=== PATIENT | male | born 1950 | race Caucasian/White ===

== ENCOUNTER 2024-06-01 23:30 | Outpatient (CLI) | payer MEDICARE, SELFPAY ==
--- OUTSIDE RECORDS SUMMARY | 2024-06-21 06:23 | XMS_ITS | Summary of Care ---
Author Organization [facility] Address [address] [place] [phone] Phone Care Team Providers Care Fryline Attendant Name Role Phone Deanna Rogers MD Primary Care Provider [phone] Reason for Visit * Reason Comments Medication Refill Encounter Details Date Type Department Care Team (Late st Contact Info) Description 04/06/2024 Refill [facility] [address] [place] [phone] Danuta Madrigal MD [address] [place] [address] [phone] Medication Refill Allergies No known active allergiesdocumented as of this encounter (statuses as of 04/07/2024) Medications Medication Sig Dispensed Refills Start Date End Date Status Lisinopril-hydroCHL OROthiazide 20-25 MG Oral Tablet Take 1 tablet by mouth Daily. 0 03/24/2014 Active Eligard 45 MG Subcutaneous Kit Take as directed 0 12/04/2019 Active MANUAL SELECTION NEEDED - Centrum Silver Oral Tablet TAKE 1 TABLET DAILY. 0 03/24/2014 Active MANUAL SELECTION NEEDED - Oxybutynin Chloride TABS Take by mouth Daily. 0 12/04/2019 Active MANUAL SELECTION NEEDED - Pravachol TABS TAKE 1 TABLET AT BEDTIME. 0 12/04/2019 Active MANUAL SELECTION NEEDED - Iron TABS Take by mouth. 0 04/28/2020 Active apalutamide (ERLEADA) 60 mg tablet Take 4 tablets by mouth Daily. Active HYDROcodone-acetami nophen (NORCO) 5-325 mg per tabletIndications:P ostoperative pain Take 1 tablet by mouth every 6 hours as needed for Pain. 30 tablet 06/16/2022 Active amantadine (SYMMETREL) 100 mg capsuleIndications: Parkinson's disease (HCC) TAKE 1 CAPSULE BY MOUTH TWICE A DAY 180 capsule 1 12/31/2023 Active carbidopa-levodopa (SINEMET) 25-250 mg per tabletIndications:P arkinson's disease without dyskinesia or fluctuating manifestations (HCC) TAKE 1 TABLET THREE TIMES A DAY. 270 tablet 3 01/03/2024 Active clonazePAM (KLONOPIN) 1 mg tabletIndications:R EM sleep behavior disorder Take 1 tablet by mouth nightly. 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): Interrogated without changes made Patient with the ability to adjust on his own Assessment & Plan (08/02/2022 1:02 PM PUSH BUTTON SWITCH ASSEMBLER): Slight increase done for tremor control REM sleep behavior disorder 03/29/2016 Assessment & Plan (08/02/2022 1:03 PM PUSH BUTTON SWITCH ASSEMBLER): Continue clonazepam Pain due to any device, implant or graft 016 Sweating increase 03/29/2016 Obesity (BMI 30-39.9) 08/31/2015 Parkinson's disease 03/24/2014 Assessment & Plan (01/03/2024 1:56 PM CDT): PD motor symptoms are mostly stable on his current regimen along with his DBS settings We will continue current medication regimen Encouraged continued participation in therapy/exercise as well as safety with walker while ambulating I will send refills for his medications today I spent >30 minutes in total patient care RTC 6 months Assessment & Plan (07/05/2023 9:34 AM PUSH BUTTON SWITCH ASSEMBLER): Patient is mostly stable on his current regimen along with his DBS settings, despite injuring his left side and spening >2 months in rehab Will continue current medication regimen Encouraged continued participation in therapy/exercise as well as safety with walker while ambulating I will send refills for his medications I spent >30 minutes in total patient care RTC 6 months Assessment & Plan (08/02/2022 1:02 PM PUSH BUTTON SWITCH ASSEMBLER): Patient is mostly stable on his current regimen along with his DBS settings Improved since battery replacement Encouraged continued participation in therapy/exercise I will send refills for all his medications, as he as changed insurance I spent >30 minutes in total patient care Assessment & Plan (05/30/2022 4:11 PM CDT): 1. Replacement bilateral anterior chest pulse generator, we have already received clearance from his tar chaser We discussed the process for replacement of a DBS pulse generator in detail today in the clinic. We also discussed potentially replacing the lead extension if required and found to be defective at the time of surgery. Alternatively the patient could forego surgery. Surgical risks can include infection, bleeding, pain, cosmetic deformity, need for future explantation or revision, damage to the system including the intracranial lead and lead extension. Damaged intracranial lead would require a separate revision surgery in the future. Following discussion questions were invited and answered to the patient's satisfaction. The patient would like to proceed. My office will work with the patient on scheduling the details of the operation. Assessment & Plan (02/21/2022 1:45 PM CDT): 1. Replacement of IPG 2. Cardiac clearance Dr. Rogers, [facility]. We discussed the process for replacement of a DBS pulse generator in detail today in the clinic. We also discussed potentially replacing the lead extension if required and found to be defective at the time of surgery. Alternatively the patient could forego surgery. Surgical risks can include infection, bleeding, pain, cosmetic deformity, need for future explantation or revision, damage to the system including the intracranial lead and lead extension. Damaged intracranial lead would require a separate revision surgery in the future. Following discussion questions were invited and answered to the patient's satisfaction. The patient would like to proceed. My office will work with the patient on scheduling the details of the operation. Assessment & Plan (11/18/2021 4:53 PM CDT): Patient is referred for neurology for replacement of IPG. Unclear whether this is a unilateral or bilateral replacement. 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 Motoring x-rays to see if this can provide some clarity on where the patient stated the wires are crossed. Unfortunately he has leg cellulitis with actively draining wounds and was just started on antibiotics by his primary care physician. His son accompanied him to clinic today and was unaware of this. I explained to him that we cannot proceed with surgery yet until this infection is cleared up. Once the infection is cleared we can proceed with replacing the pulse generator. We also discussed that if damage is found to the lead extensions at the time of surgery neck can be replaced as well. We discussed the process for replacement of a DBS pulse generator in detail today in the clinic. We also discussed potentially replacing the lead extension if required and found to be defective at the time of surgery. Alternatively the patient could forego surgery. Surgical risks can include infection, bleeding, pain, cosmetic deformity, need for future explantation or revision, damage to the system including the intracranial lead and lead extension. Damaged intracranial lead would require a separate revision surgery in the future. Following discussion questions were invited and answered to the patient's satisfaction. The patient would like to proceed. My office will work with the patient on scheduling the details of the operation. documented as of this encounter (statuses as of 04/07/2024) Social History Tobacco Use Types Packs/Day Years Used Date Smoking Tobacco: Former Cigarettes Q uit: 1972 Smokeless Tobacco: Never Alcohol Use Standard Drinks/Week Comments Never 0 (1 standard drink = 0.6 oz pur e alcohol) Vaping Answer Date Recorded Vaping Use Status Never user 11/17/2021 Alcohol Use History Answer Date Recorde d Alcohol use Never 11/05/2022 Alcohol/week (standard drinks) Not on File 0 11/05/2022 Abuse Screen Answer Date Recorded We ask all patients, do you feel safe in your living/school environment? Patient denies concerns 06/16/2022 Patient shows signs of physi jorge or sexual abuse, medical neglect, untreated STI s and or torture No 06/16/2022 Sex and Gender Information Value Date Recorded Sex Assigned at Not on file Gender Identity Not on file Sexual Orientation Not on file documented as of this encounter Plan of Treatment Upcoming Encounters Date Type Department Care Team (Late st Contact Info) Description 07/03/2024 1:00 PM PUSH BUTTON SWITCH ASSEMBLER Procedure visit [facility] LD [address] [place] [address] [phone] Danuta Madrigal MD [address] [place] [address] [phone] Health Maintenance Due Date Last Done Comments Hepatitis C Screening [address] Colonography 1967 ColoGuard 1967 Colonoscopy 1967 Colorectal Combination Topic 1967 FIT 1967 Sigmoidoscopy 1967 Vaccine: Dtap/Tdap/Td (1 - Tdap) 01/02/1968 Vaccine: Zoster (1 of 2) 1999 Vaccine: RSV Adult (1 - 1-do se 60+ series) 2009 AAA Screening 2014 Vaccine: Pneumococcal 65+ (1 of 1 - PCV) 2014 Adult Annual Wellness Visit 09/01/2021 Statin Therapy (optimal intensity) 09/01/2021 Med Mgmt: Cr 06/15/2023 06/15/2022 Med Mgmt: K 06/15/2023 06/15/2022 Med Mgmt: Na 06/15/2023 06/15/2022 Med Mgmt: eGFR 06/15/2023 06/15/2022 COVID-19 Vaccine (5 - 2023-2 4 season) 2024 03/23/2022, 08/08/2021, 10/09/2020, Additional history exists Vaccine: Influenza (#1) 2024 documented as of this encounter Medical Devices Implanted Type Area Design Technology Teacher Device Identifier Shelf Expiration Date Model / Serial / Lot Generator Neurostimulator Thk1.35cm 5.02x6.68cm 38.6cc 58.3gm Implantable Pulse Infinity - [id number] Implanted:Qty: 1 on 06/16/2022 by Yrn Maciel MD at [facility] Left: Chest [id number] 09/19/2023 [id number] / [id number] / Description:EXPLANTED #SNAWX 792.1 Generator Neurostimulator Thk1.35cm 5.02x6.68cm 38.6cc 58.3gm Implantable Pulse Infinity - [id number] Implanted:Qty: 1 on 06/16/2022 by Yrn Maciel MD at [facility] Right: Chest [id number] 12/27/2024 [id number] / [id number] / Description:EXPLANTED #SNAXE 797.1 documented as of this encounter Visit Diagnoses Diagnosis Parkinson's disease- Primary Paralysis agitans Parkinson's disease- Primary Paralysis agitans Parkinson's disease- Primary Paralysis agitans Parkinson's disease Paralysis agitans Encounter for interrogation of neurostimulator Fitting and adjustment of neuropacemaker (brain) (peripheral nerve) (spinal cord) REM sleep behavior disorder Parkinson's disease without dyskinesia or fluctuating manifestations (HCC) Encounter for interrogation of neurostimulator Fitting and adjustment of neuropacemaker (brain) (peripheral nerve) (spinal cord) Parkinson's disease without dyskinesia or fluctuating manifestations (HCC)- Primary Parkinson's disease with dyskinesia and fluctuating manifestations (HCC) Encounter for interrogation of neurostimulator Fitting and adjustment of neuropacemaker (brain) (peripheral nerve) (spinal cord) REM sleep behavior disorder Parkinson's disease with dyskinesia and fluctuating manifestations (HCC) documented in this encounter Additional Health Concerns Assessment Noted Time A fall risk assessment has been complete d for the patient 01/03/2024 1:25 PM PDT documented as of this encounter Insurance Payer Benefit Plan / Group Subscriber ID Effective Dates Phone Address Type [place] [id number] 2023-Presen t [address] [place] [phone] [place] [facility] [place] [facility] [id number] 2022-Presen t [address] [place] [address] Medicaid documented as of this encounter Advance Directives * Full Code by default - TBD (Latest Code Status on File) Date Activated Date Inactivated Comments 06/16/2022 10:56 AM 06/16/2022 3:11 PM Care Teams Fryline Attendant Relationship Specialty Start Date End Date Deanna Rogers MD [address] [place] [phone] PCP - General Internal Medicine - Cardiovascular Disease 11/17/21 documented as of this encounter
--- OUTSIDE RECORDS SUMMARY | 2024-06-21 06:24 | XMS_ITS | Data Portability ---
Author Organization [facility] [employer], [facility] Address [address] [facility] R Haritha [place] [address] Care Team Providers Care Search Strategist Name Role Phone JEN AMADOR Referring Provider [phone] Assessment Encounter Date Assessment Date Assessment LastModified by Organization Details LastModified Time 01/03/2022 01/03/2022 Gordon Hunter i s well known to me. As detailed in my previous notes, he has recently undergone extensive surgery. He presents today to discuss colorectal cancer screening. He is not interested in a colonoscopy at this time. Because of his advanced age, frailty, recent disease, and need for walker, he would like to avoid a colonoscopy if possible. He would like to pursue Cologuard testing instead. I think this is reasonable. I will proceed with a Cologuard test. He is agreeable to this. He understands that if the Cologuard test is positive, he will require a colonoscopy. He also understands that the Cologuard test has a false negative rate, and that polyps and cancers can potentially be missed with this test. I further explained that if he decides to pursue Cologuard testing only, screening will need to be performed with Cologuard tests every 3 years. He understands. He will follow-up again with me in 6 months, sooner if needed. I will contact him if Cologuard results are concerning. I spent a total of 25 minutes on this encounter. Not available 01/04/2022 21:48:49 03/09/2022 03/09/2022 I, Jaspal Monterroso, Margi Radha, acting as a scribe for Deanna Rogers MD to document his/her verbalization of the above electronic medical record in its entirety. Electronically Signed: Margi Lopez, Mar 09, 2022, Time: 3 : 36 pm I, Deanna Rogers MD, hereby attest for DOS, I personally performed and dictated the services documented here in its entirety and agree the documentation accurately represents the services and decisions I made. I also reviewed the documented ROS, PMH, SURGH, FMH, SOCH AND MEDICATIONS, and, made changes/additions as needed. Electronically signed: Deanna Rogers MD [facility] Not available 03/09/2022 18:36:09 03/14/2022 03/14/2022 I, OBI Butler, acting as a scribe for Deanna oRgers MD to document his/her verbalization of the above electronic medical record in its entirety. Electronically Signed: OBI Butler, Mar 14, 2022, Time: 09 : 56 AM Deanna Prajapati MD, hereby attest for DOS, I personally performed and dictated the services documented here in its entirety and agree the documentation accurately represents the services and decisions I made. I also reviewed the documented ROS, PMH, SURGH, FMH, SOCH AND MEDICATIONS, and, made changes/additions as needed. Electronically signed: [facility] Not available 03/15/2022 16:19:21 04/11/2022 04/11/2022 I, OBI Bulter, acting as a scribe for Deanna Rogers MD to document his/her verbalization of the above electronic medical record in its entirety. Electronically Signed: OBI Butler, Apr 11, 2022, Time: 03 : 28 PM Deanna Prajapati MD, hereby attest for DOS, I personally performed and dictated the services documented here in its entirety and agree the documentation accurately represents the services and decisions I made. I also reviewed the documented ROS, PMH, SURGH, FMH, SOCH AND MEDICATIONS, and, made changes/additions as needed. Electronically signed: MD parrish Brice Not available 04/13/2022 22:11:53 09/04/2022 09/04/2022 Gordon Hunter is well known to me. As detailed in my previous notes, he has undergone extensive surgery. He presents today once more to discuss colorectal cancer screening. He is not interested in a colonoscopy at this time. Because of his advanced age, frailty, recent disease, and need for walker, he would like to avoid a colonoscopy if possible. He would like to pursue Cologuard testing instead. I ordered this his last visit, but he has not done the test. We will order a repeat Cologuard test. He he demonstrated motivation to perform this. He understands that if this is positive, he will require a diagnostic colonoscopy. He is agreeable. He also understands that the Cologuard test has a false negative rate, and that polyps and cancers can potentially be missed with this test. I will contact him as soon as I have Cologuard test results to discuss further plans. If Cologuard test is negative, he will be due for a repeat in 3 years, and every 3 years thereafter. I spent a total of 20 minutes on this encounter. Not available 09/07/2022 01:08:06 Plan of Treatment Reminders Order Date Submit Date Provider Last Modified By Organization Details Last Modified Time Details Appointments None recorded. Lab noninvasive colorectal cancer DNA + occult blood screening, QL, stool [email or web address] [facility] (Lab), [address], [place], [address], 3 15:04:31 [facility] lipoprofile , serum [facility] [address] [place] [address], [id number], 2 12:02:36 CMP, serum or plasma 2021 [facility], [address] [place] [address], [id number], 12:33:54 CBC 2021 022 [facility], [address] [place] [address], [id number], 2 11:15:52 TSH, serum or plasma 2021 [facility], [address] [place] [address], [id number], 2 12:33:56 vitamin B12, serum 2021 [facility], [address] [place] [address], [id number], 2 12:33:53 HbA1c (hemoglobin A1c), blood 2021 [facility], [address] [place] [address], [id number], 22:00:46 vitamin D, 25-hydroxy, total, serum 2021 [facility], [address] [place] [address], [id number], 10:19:18 noninvasive colorectal cancer DNA + occult blood screening, QL, stool 2022 023 [facility] (Lab), [address], [place], [address], 3 00:00:26 Referral None recorded. Procedures None recorded. Surgeries None recorded. Imaging polysomnogr am 2021 022 [email or web address] [facility], [address], [place], [address], 13:25:44 cardiac telemetry 2021 022 JOE Not available 22:54:24 Medication Orders Vitamin D3 125 mcg (5,000 unit) tablet 2021 [id number], [address] [place] [address], [place], [phone], 15:20:28 ferrous sulfate 324 mg (65 mg iron) tablet,wade yed release 2021 022 [email or web address] [id number], [address], [place], [phone], 15:14:08 Patient TargetsNo targets recorded. Patient Instructions Encounter Date Encounter Id Patient Instructions Last Modified By Organization Details Last Modified Time 03/09/2022 [id number] When You Want to Lose Weight: Care Instructions [email or web address] Not available 03/13/2022 18:05:14 learning about healthy weight fadajar Not available 03/13/2022 18:05:14 body mass index: care instructions fadajar Not available 03/13/2022 18:05:14 eating healthy foods: care instructions fadajar Not available 03/13/2022 18:05:14 high cholesterol : care instructions fadajar Not available 03/13/2022 18:05:14 learning about high blood sugar fadajar Not available 03/13/2022 18:05:14 When You Want to Lose Weight: Care Instructions fadajar Not available 03/13/2022 18:05:14 sleep apnea: car e instructions fadajar Not available 03/13/2022 18:05:14 parkinson's disease: care instructions fadajar Not available 03/13/2022 18:05:14 atrial fibrillation: care instructions fadajar Not available 03/13/2022 18:05:14 03/14/2022 [id number] When You Want to Lose Weight: Care Instructions fadajar Not available 03/15/2022 16:31:40 learning about healthy weight fadajar Not available 03/15/2022 16:31:40 body mass index: care instructions fadajar Not available 03/15/2022 16:31:40 eating healthy foods: care instructions fadajar Not available 03/15/2022 16:31:40 sleep apnea: car e instructions fadajar Not available 03/15/2022 16:31:40 high cholesterol : care instructions fadajar Not available 03/15/2022 16:31:40 04/11/2022 [id number] When You Want to Lose Weight: Care Instructions fadajar Not available 04/13/2022 15:20:28 learning about healthy weight fadajar Not available 04/13/2022 15:20:28 body mass index: care instructions fadajar Not available 04/13/2022 15:20:28 eating healthy foods: care instructions fadajar Not available 04/13/2022 15:20:28 sleep apnea: car e instructions fadajar Not available 04/13/2022 15:20:28 high cholesterol : care instructions fadajar Not available 04/13/2022 15:20:28 iron deficiency anemia: care instructions fadajar Not available 04/13/2022 15:20:28 Reason for Referral None Reported. Results Created Date Observation Date Name Description Value Unit Range Abnormal Flag Note LastModifiedBy Organization Detail LastModifiedTime 03/28/20 22 03/28/2022 CBC W/ AUTO DIFF baso # 0.04 K/mm3 0-0.22 normal Not Available [facility] (Lab) [address] [place], [place] [address], [address], 03/28/2022 11:15:52 03/28/20 22 03/28/2022 CBC W/ AUTO DIFF baso % 0.6 % 0-2 normal Not Available [facility] (Lab) [address] [place] [address] [place], [address], 03/28/2022 11:15:52 03/28/20 22 03/28/2022 CBC W/ AUTO DIFF eos # 0.35 K/mm3 0-0.55 normal Not Available [facility] (Lab) [address] [place] [address] [place], [address], 03/28/2022 11:15:52 03/28/20 22 03/28/2022 CBC W/ AUTO DIFF eos % 5.3 % 0-5 high Not Available [facility] (Lab) [address] [place] [address] [place], [address], 03/28/2022 11:15:52 03/28/20 22 03/28/2022 CBC W/ AUTO DIFF hematocrit 38.8 % 41-[address] [facility] (Lab) [address] [place] [address] [place], [address], 03/28/2022 11:15:52 03/28/20 22 03/28/2022 CBC W/ AUTO DIFF hemoglobin 12.1 gm/dL 14-[address] [facility] (Lab) [address] [place] [address] [place], [address], 03/28/2022 11:15:52 03/28/20 22 03/28/2022 CBC W/ AUTO DIFF immature gran# 0.16 K/mm3 0.02-0 .[address] [facility] (Lab) [address] [place] [address] [place], [address], 03/28/2022 11:15:52 03/28/20 22 03/28/2022 CBC W/ AUTO DIFF immature gran% 2.4 % 0.2-0. [address] [facility] (Lab) [address] [place] [address] [place], [address], 03/28/2022 11:15:52 03/28/20 22 03/28/2022 CBC W/ AUTO DIFF lymph # 1.51 K/mm3 0.72-5 .[address] [facility] (Lab) [address] [place] [address] [place], [address], 03/28/2022 11:15:52 03/28/20 22 03/28/2022 CBC W/ AUTO DIFF lymph % 22.8 % 16-47 normal Not Available [facility] (Lab) [address] [place] [address] [place], [address], 03/28/2022 11:15:52 03/28/20 22 03/28/2022 CBC W/ AUTO DIFF mean corpuscular hemoglobin 29.5 pg 26-34 normal Not Available [facility] (Lab) [address] [facility] [place], [address], 03/28/2022 11:15:52 03/28/20 22 03/28/2022 CBC W/ AUTO DIFF mean corpuscular HGB conc 31.2 g/dL 33-36 low Not Available [facility] (Lab) [address] [place] [address] [place], [address], 03/28/2022 11:15:52 03/28/20 22 03/28/2022 CBC W/ AUTO DIFF mean cell volume 94.6 fL 80-100 normal Not Available [facility] (Lab) [address] [place] [address] [place], [address], 03/28/2022 11:15:52 03/28/20 22 03/28/2022 CBC W/ AUTO DIFF mono # 0.64 K/mm3 0.135- 1.[address] [facility] (Lab) [address] [place] [address] [place], [address], 03/28/2022 11:15:52 03/28/20 22 03/28/2022 CBC W/ AUTO DIFF mono % 9.7 % 3-13 normal Not Available [facility] (Lab) [address] [place] [address] [place], [address], 03/28/2022 11:15:52 03/28/20 22 03/28/2022 CBC W/ AUTO DIFF mean platelet volume 9.4 fL 8.6-12 .[address] [facility] (Lab) [address] [place] [address] [place], [address], 03/28/2022 11:15:52 03/28/20 22 03/28/2022 CBC W/ AUTO DIFF neutrophil# 3.92 K/mm3 1.8-8. [address] [facility] (Lab) [address] [place] [address] [place], [address], 03/28/2022 11:15:52 03/28/20 22 03/28/2022 CBC W/ AUTO DIFF neutrophil% 59.2 % 40-76 normal Not Available [facility] (Lab) [address] [place], [address], 03/28/2022 11:15:52 03/28/20 22 03/28/2022 CBC W/ AUTO DIFF nucleated red blood cell 0.0 % 0-0 normal Not Available [facility] (Lab) [address] [place], [address], 03/28/2022 11:15:52 03/28/20 22 03/28/2022 CBC W/ AUTO DIFF platelet count 299 K/mm3 130-40 [address] [facility] (Lab) [address] [place], [address], 03/28/2022 11:15:52 03/28/20 22 03/28/2022 CBC W/ AUTO DIFF red blood count 4.1 M/mm3 4.5-5. [address] [facility] (Lab) [address] [place], [address], 03/28/2022 11:15:52 03/28/20 22 03/28/2022 CBC W/ AUTO DIFF red cell distribution width 14.0 % 11.5-1 5.[address] [facility] (Lab) [address] [place], [address], 03/28/2022 11:15:52 03/28/20 22 03/28/2022 CBC W/ AUTO DIFF white blood count 6.6 K/mm3 4.5-11 .[address] [facility] (Lab) [address] [place], [address], 03/28/2022 11:15:52 03/28/20 22 03/28/2022 VITAM IN B12 vitamin B12 264 pg/mL 180-91 [address] [facility] (Lab) [address] [place], [address], 03/28/2022 12:33:53 03/28/20 22 03/28/2022 COMP. METAB OLIC albumin 3.7 gm/dL 3.5-5. [address] [facility] (Lab) [address] [place], [address], 03/28/2022 12:33:54 03/28/20 22 03/28/2022 COMP. METAB OLIC alkaline phosphatase 82 U/L 32-140 normal Not Available [facility] (Lab) [address] [place], [address], 03/28/2022 12:33:54 03/28/20 22 03/28/2022 COMP. METAB OLIC blood urea nitrogen 26 mg/dL 8-21 high Not Available [facility] (Lab) [address] [place], [address], 03/28/2022 12:33:54 03/28/20 22 03/28/2022 COMP. METAB OLIC calcium 9.7 mg/dL 8.4-10 .[address] [facility] (Lab) [address] [place], [address], 03/28/2022 12:33:54 03/28/20 22 03/28/2022 COMP. METAB OLIC chloride 105 mEq/L 98-112 normal Not Available [facility] (Lab) [address] [place], [address], 03/28/2022 12:33:54 03/28/20 22 03/28/2022 COMP. METAB OLIC carbon dioxide 26 mEq/L 24-31 normal Not Available [facility] (Lab) [address] [place], [address], 03/28/2022 12:33:54 03/28/20 22 03/28/2022 COMP. METAB OLIC creatinine 1.0 mg/dL 0.6-1. [address] [facility] (Lab) [address] [place], [address], 03/28/2022 12:33:54 03/28/20 22 03/28/2022 COMP. METAB OLIC anion gap 11.5 5-[address] [facility] (Lab) [address] [place], [address], 03/28/2022 12:33:54 03/28/20 22 03/28/2022 COMP. METAB OLIC glucose,rand om 102 mg/dL 65-105 normal Not Available [facility] (Lab) [address] [place], [address], 03/28/2022 12:33:54 03/28/20 22 03/28/2022 COMP. METAB OLIC potassium 4.5 mEq/L 3.5-5. [address] [facility] (Lab) [address] [facility] [place], [address], 03/28/2022 12:33:54 03/28/20 22 03/28/2022 COMP. METAB OLIC sodium 138 mEq/L 135-14 [address] [facility] (Lab) [address] [facility] [place], [address], 03/28/2022 12:33:54 03/28/20 22 03/28/2022 COMP. METAB OLIC SGOT/AST 11 IU/L 10-42 normal Not Available [facility] (Lab) [address] [place] [address] [place], [address], 03/28/2022 12:33:54 03/28/20 22 03/28/2022 COMP. METAB OLIC SGPT/ALT 6 IU/L 10-40 low Not Available [facility] (Lab) [address] [place] [address] [place], [address], 03/28/2022 12:33:54 03/28/20 22 03/28/2022 COMP. METAB OLIC bilirubin,to catrachito 0.3 mg/dL 0.2-1. [address] [facility] (Lab) [address] [place], [address], 03/28/2022 12:33:54 03/28/20 22 03/28/2022 COMP. METAB OLIC total protein 6.9 gm/dL 6-8 normal Not Available [facility] (Lab) [address] [place], [address], 03/28/2022 12:33:54 03/28/20 22 03/28/2022 COMP. METAB OLIC eGFR 74 60 Repor ting units are ml/mi n/1.7 3 2 eGFR from the CKD-E PI equat ion. For Afro Ameri can multi ply resul t by 1.16. Estim ation s may not be accur ate in patie nts with extre mes in body mass, diet, or other condi tions affec ting creat inine excre tion. For more infor anai sky visit [email or web address] mathews .org/ lesly aguilar/K DOQI/ gfr Not Available [facility] (Lab) [address] [place], [address], 03/28/2022 12:33:54 03/28/20 22 03/28/2022 LIPID PANEL chol/HDL 4.9 ratio 2.27-3 .[address] [facility] (Lab) [address] [place], [address], 03/28/2022 12:33:55 03/28/20 22 03/28/2022 LIPID PANEL cholesterol 153 mg/dL 120-20 [address] Not [address] [facility] (Lab) [address] [place], [address], 03/28/2022 12:33:55 03/28/20 22 03/28/2022 LIPID PANEL HDL cholesterol 31 mg/dL 31-75 normal Not Available [facility] (Lab) [address] [place] [address] [place], [address], 03/28/2022 12:33:55 03/28/20 22 03/28/2022 LIPID PANEL LDL cholesterol 80 mg/dL Optim al: <100 Borde rline High: 130-[address] [facility] (Lab) [address] [place] [address] [place], [address], 03/28/2022 12:33:55 03/28/20 22 03/28/2022 LIPID PANEL triglyceride s 211 mg/dL 35-160 high Not Available [facility] (Lab) [address] [place] [address] [place], [address], 03/28/2022 12:33:55 03/28/20 22 03/28/2022 THYRO ID STIMU LATIN G HORMO NE thyroid stimulating hormone 1.83 uIU/m L 0.49-4 .[address] [facility] (Lab) [address] [place] [address] [place], [address], 03/28/2022 12:33:56 03/28/20 22 03/28/2022 HGBA1 C A1C 0.53 Not Available [facility] (Lab) [address] [place] [address] [place], [address], 03/28/2022 22:00:46 03/28/20 22 03/28/2022 HGBA1 C Hb 12.00 Not Available [facility] (Lab) [address] [place] [address] [place], [address], 03/28/2022 22:00:46 03/28/20 22 03/28/2022 HGBA1 C % HGBA1C 6.2 % 4.2-6. [address] [facility] (Lab) [address] [place] [address] [place], [address], 03/28/2022 22:00:46 03/28/20 22 03/28/2022 HGBA1 C est avg gluc 131 mg/dL 76-120 high Not Available [facility] (Lab) [address], [place], [address], 03/28/2022 22:00:46 03/28/20 22 03/29/2022 VITAM IN D, 25-HY DROXY vitamin D, 25-hydroxy 29.1 NG/mL 30.0-1 00.0 abnormal Vitam in D defic iency has been defin ed by the Insti tute of Medic ine and an Endoc rine Socie ty pract ice guide line as a level of serum 25-OH vitam in D less than 20 ng/mL (1,2) . The Endoc rine Socie ty went on to [facility] er defin e vitam in D insuf ficie ncy as a level betwe en 21 and 29 ng/mL (2). 1. IOM (Inst itute of Medic ine). 2010. Dieta ry refer ence intak es for calci um and D. Darwin winn [place]: [facility] Press . 2. Sánchez amado MF, Bryon reyes [place], Alicia off-F errtoo i GE, et al. Evalu ation , treat ment, and preve ntion of vitam in D defic iency : an Endoc rine Socie ty clini jorge pract ice guide line. JCEM. 2010; 96(7) :1911 -30. Perfo rmed at: [facility] [place] [address], [place] [address] Lab Direc tor: Lucio gaytan MD, Phone : [phone] [facility] (Lab) [address] [place], [place], [address], 03/29/2022 10:19:18 03/17/20 22 03/14/2022 elect betzaida ordonez am No observ ation record ed. [facility] [place] [address] [facility], [place], [address], 03/17/2022 20:27:37 03/19/20 22 03/17/2022 cardi ac telem etry No observ ation record ed. [email or web address] [facility] [address], [place], [address], 04/08/2022 18:07:36 03/20/20 22 03/18/2022 cardi ac telem etry No observ ation record ed. [email or web address] [facility] [address], [place], [address], 04/08/2022 18:07:37 03/20/20 22 03/19/2022 cardi ac telem etry No observ ation record ed. [email or web address] [facility] [address], [place], [address], 04/08/2022 18:04:40 03/21/20 22 03/20/2022 cardi ac telem etry No observ ation record ed. [email or web address] [facility] [address], [place], [address], 04/08/2022 18:04:47 03/22/20 22 03/21/2022 cardi ac telem etry No observ ation record ed. [email or web address] [facility] [address], [place], [address], 04/08/2022 18:04:56 03/23/20 22 03/22/2022 cardi ac telem etry No observ ation record ed. [email or web address] [facility] [address], [place], [address], 04/08/2022 18:05:02 03/25/20 22 03/23/2022 cardi ac telem etry No observ ation record ed. [email or web address] [facility] [address], [place], [address], 04/08/2022 18:05:19 03/25/20 22 03/24/2022 cardi ac telem etry No observ ation record ed. [facility] [address], [place], [address], 04/08/2022 18:05:31 03/26/20 22 03/25/2022 cardi ac telem etry No observ ation record ed. [email or web address] [facility] [address], [place], [address], 04/08/2022 18:05:43 03/27/20 22 03/26/2022 cardi ac telem etry No observ ation record ed. [email or web address] [facility] [address], [place], [address], 04/08/2022 18:05:51 03/28/20 22 03/27/2022 cardi ac telem etry No observ ation record ed. [facility] [address], [place], [address], 04/08/2022 18:07:37 03/30/20 22 03/28/2022 cardi ac telem etry No observ ation record ed. [email or web address] [facility] [address], [place], [address], 04/08/2022 18:07:38 03/31/20 22 03/29/2022 cardi ac telem etry No observ ation record ed. [email or web address] [facility] [address], [place], [address], 04/08/2022 18:07:38 04/02/20 22 03/31/2022 cardi ac telem etry No observ ation record ed. [email or web address] [facility] [address], [place], [address], 04/08/2022 18:36:06 04/02/20 22 04/01/2022 cardi ac telem etry No observ ation record ed. [email or web address] [facility] [address], [place], [address], 04/08/2022 18:40:55 04/03/20 22 04/02/2022 cardi ac telem etry No observ ation record ed. [email or web address] [facility] [address], [place], [address], 05/02/2022 19:43:06 04/03/20 22 03/30/2022 cardi ac telem etry No observ ation record ed. [facility] [address], [place], [address], 04/08/2022 18:01:08 04/07/20 22 04/03/2022 cardi ac telem etry No observ ation record ed. [email or web address] [facility] [address], [place], [address], 05/02/2022 19:43:07 04/07/20 22 04/05/2022 cardi ac telem etry No observ ation record ed. [email or web address] [facility] [address], [place], [address], 05/02/2022 19:43:08 04/09/20 22 04/08/2022 cardi ac telem etry No observ ation record ed. [email or web address] [facility] [address], [place], [address], 05/02/2022 19:43:08 04/09/20 22 04/06/2022 cardi ac telem etry No observ ation record ed. [email or web address] [facility] [address], [place], [address], 05/02/2022 19:43:09 04/10/20 22 04/09/2022 cardi ac telem etry No observ ation record ed. [email or web address] [facility] [address], [place], [address], 04/11/2022 13:05:02 04/11/20 22 04/07/2022 cardi ac telem etry No observ ation record ed. [email or web address] [facility] [address], [place], [address], 05/02/2022 19:43:10 04/11/20 22 04/10/2022 cardi ac telem etry No observ ation record ed. [facility] [address], [place], [address], 05/02/2022 19:43:11 04/11/20 22 04/11/2022 chapis hicksgr am No observ ation record ed. [facility] [address] [facility], [place], [address], 04/11/2022 20:38:43 04/19/20 22 cardi ac telem etry No observ ation record ed. [place] [address] [employer] [address], [place], [address], 05/02/2022 19:43:12 04/19/20 22 04/15/2022 cardi ac telem etry No observ ation record ed. [email or web address] [facility] [address], [place], [address], 05/02/2022 19:43:13 Result Notes None recorded. Problems Name Problem SNOMED Code Status Onset Date Resolution Date Notes Provider Name and Address Organization Details Recorded Time Impotence of organic origin Active Subha Templeton [employer] null, [facility] 6 17:21:17 Arthritis 4155697 Active Subha Templeton [employer]SO[employer] MONITOR null, [facility] 6 17:21:17 Parkinson' s disease 21030722 Active Deanna Rogers MD [address], [place], [address] [place] [address] 6 18:56:59 Hydrocele Active Sbuha Templeton [employer]SO[employer] MONITOR null, [facility] 6 17:21:17 Swelling of scrotum 101475591 Active Subha Templeton [employer] TELEVIS[employer]SOLE MONITOR null, [facility] 6 17:21:17 Obesity 992620047 Active Home sleep study performed 08/18/2019 was negative for SISSY. Miller Cerriteno , ABR-OE null, [facility] 0 11:25:32 Electrocar diogram abnormal 247731722 Active Adenosine nuclear stress test performed 09/18/2019 showed normal myocardial perfusion imaging, negative for ischemia nor arrythmia. Miller Cerriteno , ABR-OE null, [facility] 0 12:53:22 Carotid bruit 402298712 Active 2019 Carotid ultrasound performed 08/13/2019 showed no evidence of measurable stenosis. Miller Cerriteno , ABR-OE null, [facility] 0 11:20:13 Left ventricula r hypertroph y 64273554 Active 2019 Echocardio gram performed 08/13/2019 showed EF at 60-65%, severe LVH, mild tricuspid regurgitat ion, left atrium mildly dilated. Mild aortic root dilatation . Millerjoss Hansen , ABR-OE null, [facility] [employer] 0 11:20:48 Abdominal aortic aneurysm 729516465 Active 2020 Abdominal aortic ultrasound performed 03/10/2020 showed abdominal aortic aneurysm measuring 4.[address] abdomen with runoff performed 03/15/2020 reflected cholelithi asis without acute cholecysti tis. 3.5 cm aneurysmal ectasia of the infrarenal abdominal aorta. 2.5 cm simple cyst present in the superior pole of the right kidney. Colonic diverticul osis present without acute diverticul itis. 3 cm lesion noted in segment 7 of the liver with enhancing characteri stics of benign hepatic cavernous angioma impression . CTA abdominal aorta with runoff performed 09/10/2020 . Study showed no AAA. Miller Tyrone , ABR-OE null, [facility] 1 17:40:26 Metastatic malignant neoplasm 434610912 Active 2020 CTA abdominal aorta with runoff performed 09/10/2020 . Study showed no AAA. Left popliteal artery demonstrat es three-vess el runoff with multifocal segmental stenosis i nthe proximal and distal aspects suggestive of small vessel disease. Left iliac bone demonstrat es a sclerotic lesion measuring 5.2 cm x 3.7 cm. Metastatic disease from an unknown primary cannot be excluded. Miller Tyrone , ABR-OE null, [facility] [employer] 1 17:42:57 Problem Notes None recorded. Procedures Surgical History Date Name Laterality Status Provider Name and Address Organization Details Recorded Time 2 WOUND CARE completed Aashish Blackmon MD [address], [place], [address], [place] [facility] [employer] 09/29/2021 17:06:49 0 ELIGARD INJECTION completed Danielle Valentine CMA [facility] [employer] 10/20/2019 11:59:45 9 ELIGARD INJECTION completed ADONIS Nieves [facility] [employer] 04/09/2019 13:24:52 7 GENERIC TEMPLATE completed Chey FloresireADONIS wallace [facility] [place] 08/01/2016 13:25:12 6 GENERIC TEMPLATE completed ADONIS Nieves [facility] [place] 07/28/2016 11:49:43 6 INGUINAL HERNIA REPAIR (SURG) completed Deanna Rogers MD [address], [place], [address], [facility] 09/02/2016 18:54:25 Joint Surgery completed Kortney Wright, [facility] 06/12/2016 12:15:57 Kidney Surgery completed Becky Guillen [facility] 06/10/2013 14:51:03 Knee Arthroscopy completed Becky Guillen [facility] 06/10/2013 14:51:03 Imaging Results Imaging Date Name Status LastModified by Organization Details LastModified Time 03/14/2022 electrocardiogram completed [facility] [address] [facility], [place], [address], 03/17/2022 20:27:37 03/17/2022 cardiac telemetry completed [email or web address] [facility] [address], [place], [place], [address], 04/08/2022 18:07:36 03/18/2022 cardiac telemetry completed [email or web address] [facility] [address], [place], [address], 04/08/2022 18:07:37 03/19/2022 cardiac telemetry completed [email or web address] [facility] [address], [place], [place], [address], 04/08/2022 18:04:40 03/20/2022 cardiac telemetry completed [email or web address] [facility] [address], [place], [address], 04/08/2022 18:04:47 03/21/2022 cardiac telemetry completed [email or web address] [facility] [address], [place], [address], 04/08/2022 18:04:56 03/22/2022 cardiac telemetry completed [email or web address] [facility] [address], [place], [address], 04/08/2022 18:05:02 03/23/2022 cardiac telemetry completed [email or web address] [facility] [address], [place], [place], [address], 04/08/2022 18:05:19 03/24/2022 cardiac telemetry completed [email or web address] [facility] [address], [place], [address], 04/08/2022 18:05:31 03/25/2022 cardiac telemetry completed [email or web address] [facility] [address], [place], [place], [address], 04/08/2022 18:05:43 03/26/2022 cardiac telemetry completed [email or web address] [facility] [address], [place], [place], [address], 04/08/2022 18:05:51 03/27/2022 cardiac telemetry completed [email or web address] [facility] [address], [place], [address], 04/08/2022 18:07:37 03/28/2022 cardiac telemetry completed [email or web address] [facility] [address], [place], [address], 04/08/2022 18:07:38 03/29/2022 cardiac telemetry completed [email or web address] [facility] [address], [place], [address], 04/08/2022 18:07:38 03/31/2022 cardiac telemetry completed [email or web address] [facility] [address], [place], [address], 04/08/2022 18:36:06 04/01/2022 cardiac telemetry completed [facility] [address], [place], [address], 04/08/2022 18:40:55 04/02/2022 cardiac telemetry completed [email or web address] [facility] [address], [place], [address], 05/02/2022 19:43:06 03/30/2022 cardiac telemetry completed [email or web address] [facility] [address], [place], [address], 04/08/2022 18:01:08 04/03/2022 cardiac telemetry completed [email or web address] [facility] [address], [place], [address], 05/02/2022 19:43:07 04/05/2022 cardiac telemetry completed [email or web address] [facility] [address], [place], [address], 05/02/2022 19:43:08 04/08/2022 cardiac telemetry completed [email or web address] [facility] [address], [place], [address], 05/02/2022 19:43:08 04/06/2022 cardiac telemetry completed [facility] [address], [place], [address], 05/02/2022 19:43:09 04/09/2022 [email or web address] [address], [place], [address], 04/11/2022 13:05:02 04/07/2022 cardiac telemetry completed [email or web address] [facility] [address], [place], [address], 05/02/2022 19:43:10 04/10/2022 cardiac telemetry completed [facility] [address], [place], [address], 05/02/2022 19:43:11 04/11/2022 electrocardiogram completed [facility] [address], [address], 04/11/2022 20:38:43 04/19/2022 cardiac telemetry completed [place] [address] [employer] [address], [place], [address], 05/02/2022 19:43:12 04/15/2022 cardiac telemetry completed [email or web address] [facility] [address], [place], [address], 05/02/2022 19:43:13 Procedure Notes None recorded. Medical Equipment None Reported. Allergies No known drug allergies Medications Name Sig Start Date Stop Date Status Note LastModified by Organization Details LastModified Time amantadine HCl 100 mg tablet 12/04 completed Not Available Not Available Not Available carisoprodo l 350 mg tablet 08/12 completed Not Available Not Available Not Available amoxicillin 500 mg capsule 09/13 completed Not Available Not Available Not Available pramipexole 1 mg tablet TAKE 1 TABLET BY MOUTH THREE TIMES A DAY active Not Available Not Available No t Available furosemide 40 mg tablet TAKE 1 TABLET BY MOUTH EVERY MORNING 12/04 completed Not Available Not Available Not Available potassium chloride ER 10 mEq capsule,ext ended release TK 1 C PO QD 09/05 completed Not Available Not Available Not Available oxybutynin chloride ER 15 mg tablet,exte nded release 24 hr TAKE 1 TABLET BY MOUTH EVERY DAY active Not Available Not Available No t Available ropinirole 1 mg tablet 09/13 completed Not Available Not Available Not Available albuterol sulfate 2.5 mg/3 mL (0.083 %) solution for nebulizatio n USE 1 VIAL ONCE 03/14 completed Not Available Not Available Not Available oxybutynin chloride ER 10 mg tablet,exte nded release 24 hr TAKE 1 TABLET BY MOUTH EVERY DAY 09/29 completed Not Available Not Available Not Available azithromyci n 250 mg tablet 09/16 completed Not Available Not Available Not Available pravastatin 40 mg tablet TAKE 1 TABLET BY MOUTH AT NIGHT active Not Available Not Available No t Available carbidopa 25 mg-levodopa 250 mg tablet TAKE 1 TABLET BY MOUTH THREE TIMES A DAY active Not Available Not Available No t Available cephalexin 250 mg capsule TAKE 1 CAPSULE BY MOUTH FOUR TIMES A DAY active Not Available Not Available No t Available hydrocodone 5 mg-acetamin ophen 325 mg tablet TAKE 1 TABLET BY MOUTH EVERY 4 (FOUR) HOURS IF NEEDED FOR MODERATE PAIN (4-6) FOR UP TO 4 DAYS. 12/04 completed Not Available Not Available Not Available promethazin e 25 mg rectal suppository Insert by rectal route for 2 days. 02/27 completed Not Available Not Available Not Available prednisone 20 mg tablet Take by oral route for 5 days. 09/16 completed Not Available Not Available Not Available clonazepam 0.5 mg tablet TK 1 T PO QHS 09/05 completed Not Available Not Available Not Available clonazepam 1 mg tablet TAKE 1 TABLET BY MOUTH EVERYDAY AT BEDTIME active Not Available Not Available No t Available diphenoxyla te-atropine 2.5 mg-0.025 mg tablet Take by oral route for 10 days. 02/27 completed Not Available Not Available Not Available penicillin V potassium 500 mg tablet 09/13 completed Not Available Not Available Not Available metronidazo le 500 mg tablet Take by oral route for 10 days. 02/27 completed Not Available Not Available Not Available acetaminoph en 300 mg-codeine 30 mg tablet 09/05 completed Not Available Not Available Not Available allopurinol 100 mg tablet TAKE 1 TABLET BY MOUTH EVERY DAY 12/04 completed Not Available Not Available Not Available ciprofloxac in 500 mg tablet TAKE 1 TABLET BY MOUTH TWICE A DAY active Not Available Not Available No t Available sulfamethox azole 800 mg-trimetho prim 160 mg tablet TAKE 1 TABLET BY MOUTH TWICE DAILY 03/14 completed Not Available Not Available Not Available hydrocodone 10 mg-acetamin ophen 325 mg tablet TK 1 T PO Q 6 H PRN FOR 15 DAYS 08/30 completed Not Available Not Available Not Available amantadine HCl 100 mg capsule TAKE 1 CAPSULE BY MOUTH TWICE A DAY active Not Available Not Available No t Available simvastatin 40 mg tablet TK 1 T PO QHS 09/13 completed Not Available Not Available Not Available pramipexole 0.5 mg tablet 08/12 completed Not Available Not Available Not Available Celebrex 200 mg capsule TK ONE C PO ONCE D 08/12 completed Not Available Not Available Not Available oxycodone-a cetaminophe n 5 mg-325 mg tablet 09/16 completed Not Available Not Available Not Available potassium chloride ER 20 mEq tablet,exte nded release(par t/cryst) TAKE 1 TABLET BY MOUTH EVERY DAY. 09/29 completed Not Available Not Available Not Available famotidine 20 mg tablet 09/16 completed Not Available Not Available Not Available magnesium oxide 400 mg (241.3 mg magnesium) tablet TAKE 1 TABLET BY MOUTH EVERY DAY active Not Available Not Available No t Available DOK 100 mg capsule TK ONE C PO BID 09/16 completed Not Available Not Available Not Available IBU 600 mg tablet Take by oral route for 10 days. 09/16 completed Not Available Not Available Not Available Triple Antibiotic 3.5 mg-400 unit-5,000 unit/gram topical ointment ISI TO HEAD OF PENIS BID AFTER FIRST WASHING THE AREA 09/04 completed Not Available Not Available Not Available gemfibrozil 600 mg tablet TK 1 T PO BID 08/12 completed Not Available Not Available Not Available cephalexin 500 mg capsule TAKE 1 TABLET BY MOUTH 3 TIMES A DAY 09/04 completed Not Available Not Available Not Available promethazin e 25 mg tablet Take by oral route for 2 days. 02/27 completed Not Available Not Available Not Available gabapentin 300 mg capsule TAKE 1 CAPSULE BY MOUTH AT NIGHT active Not Available Not Available No t Available Banophen 25 mg capsule Take by oral route for 7 days. 02/27 completed Not Available Not Available Not Available lisinopril 20 mg-hydrochl orothiazide 25 mg tablet TK 07/31 T PO QAM active Not Available Not Available No t Available estradiol 2 mg tablet TAKE 1 TABLET BY MOUTH TWICE DAILY DIRECTED 04/07 completed Not Available Not Available Not Available mupirocin 2 % topical ointment 12/04 completed Not Available Not Available Not Available furosemide 20 mg tablet TAKE 1 TABLET BY MOUTH EVERY MORNING 09/29 completed Not Available Not Available Not Available metoprolol succinate ER 25 mg tablet,exte nded release 24 hr Take 0.5 tablets every day by oral route for 90 days. 03/14 completed Not Available Not Available Not Available cefuroxime axetil 500 mg tablet TAKE 1 TABLET BY MOUTH 2 TIMES PER DAY FOR 10 DAYS. active Not Available Not Available No t Available methylpredn isolone 4 mg tablets in a dose pack 09/13 completed Not Available Not Available Not Available carbidopa 25 mg-levodopa 100 mg tablet TAKE 2 TABLETS BY MOUTH THREE TIMES DAILY 12/04 completed Not Available Not Available Not Available hydrocodone 7.5 mg-acetamin ophen 500 mg tablet TK 1 T PO Q 6 H 08/12 completed Not Available Not Available Not Available cefdinir 300 mg capsule 09/13 completed Not Available Not Available Not Available naproxen 500 mg tablet TK 1 T PO BID WC 03/11 completed Not Available Not Available Not Available amoxicillin 875 mg-potassiu m clavulanate 125 mg tablet Take by oral route for 10 days. 08/30 completed Not Available Not Available Not Available Ventolin HFA 90 mcg/actuati on aerosol inhaler 09/05 completed Not Available Not Available Not Available oxycodone 5 mg tablet 09/16 completed Not Available Not Available Not Available Mucinex 600 mg tablet, extended release TK 1 T PO BID 08/12 completed Not Available Not Available Not Available Crestor 20 mg tablet 09/13 completed Not Available Not Available Not Available fenofibrate micronized 145 mg tablet Take 1 tablet every day by oral route. 09/13 completed Not Available Not Available Not Available Eligard 45 mg (6 month) subcutaneou s syringe Inject 1 syringe by subcutane ous route. 10/04 completed Not Available Not Available Not Available sildenafil (pulmonary hypertensio n) 20 mg tablet Take 3 tablets every day by oral route for 30 days. 09/16 completed Not Available Not Available Not Available Azilect 1 mg tablet 09/13 completed Not Available Not Available Not Available fenofibrate nanocrystal lized 145 mg tablet TK 1 T PO HS 09/13 completed Not Available Not Available Not Available ferrous sulfate 324 mg (65 mg iron) tablet,wade yed release Take 1 tablet every day by oral route for 90 days. 12/04 completed Not Available Not Available Not Available FeroSul 325 mg (65 mg iron) tablet TAKE 1 TABLET BY MOUTH EVERY DAY 12/04 completed Not Available Not Available Not Available Bystolic 5 mg tablet TK 1 T PO QD 09/13 completed Not Available Not Available Not Available ropinirole ER 4 mg tablet,exte nded release 24 hr TK 1 T PO QAM 08/12 completed Not Available Not Available Not Available ropinirole ER 8 mg tablet,exte nded release 24 hr TK 1 T PO QAM 08/12 completed Not Available Not Available Not Available Vitamin D3 125 mcg (5,000 unit) tablet Take 1 tablet every day by oral route for 90 days. 2021 active Not Available Not Available Not Avai lable Xarelto 10 mg tablet 09/16 completed Not Available Not Available Not Available Vicodin 5 mg-300 mg tablet 09/13 completed Not Available Not Available Not Available Vitals Date Recorded Body height Body mass index (BMI) Body weight Body temperature Heart rate Systolic blood pressure Diastolic blood pressure Provider Name and Address Organization Details Last Updated DateTime 2 193.04 cm 30.6 kg/m2 836901. 12 g 97.3 [degF] 53 /min 147 mm[Hg] 74 mm[Hg] Cherry Lozano MA [facility] 2 12:37:08 Date Recorded Body height Body mass index (BMI) Body weight Oxygen saturation Oxygen saturation in Arterial blood by Pulse oximetry Heart rate Body temperature Systolic blood pressure Diastolic blood pressure Provider Name and Address Organization Details Last Updated DateTime 2 193.04 cm 29.2 kg/m2 455841. 17 g 99 % 99 % 53 /min 98.1 [degF] 179 mm[Hg] 86 mm[Hg] Swati Escobar MA [facility] 2 17:09:42 Date Recorded Body height Body mass index (BMI) Body weight Oxygen saturation Oxygen saturation in Arterial blood by Pulse oximetry Heart rate Body temperature Systolic blood pressure Diastolic blood pressure Systolic blood pressure Diastolic blood pressure Provider Name and Address Organization Details Last Updated DateTime 2 193.04 cm 31.8 kg/m2 598480. 05 g 98 % 98 % 55 /min 97 [degF] 167 mm[Hg] 91 mm[Hg] 172 mm[Hg] 94 mm[Hg] Radha Kohli CMA [facility] 2 11:44:35 Date Recorded Body height Body mass index (BMI) Body weight Oxygen saturation Oxygen saturation in Arterial blood by Pulse oximetry Heart rate Body temperature Systolic blood pressure Diastolic blood pressure Provider Name and Address Organization Details Last Updated DateTime 2 193.04 cm 30.2 kg/m2 131283. 91 g 96 % 96 % 56 /min 97.2 [degF] 150 mm[Hg] 76 mm[Hg] Swati Escobar MA [facility] 2 17:17:58 Date Recorded Body height Body mass index (BMI) Body weight Body temperature Heart rate Systolic blood pressure Diastolic blood pressure Provider Name and Address Organization Details Last Updated DateTime 3 193.04 cm 29.2 kg/m2 138055. 17 g 98.1 [degF] 58 /min 119 mm[Hg] 69 mm[Hg] Robert Maynard MA [facility] 3 17:05:54 Date Recorded Body height Body mass index (BMI) Body weight Body temperature Heart rate Systolic blood pressure Diastolic blood pressure Provider Name and Address Organization Details Last Updated DateTime 3 193.04 cm 31.8 kg/m2 834969. 61 g 98.3 [degF] 58 /min 121 mm[Hg] 62 mm[Hg] Sushma Echavarria MA [facility] 3 15:15:13 Social History Question Answer Notes LastModified by Organizat ion Details LastModified Time Tobacco Smoking Status Never Smoker ADONIS Chávez, [facility] 06/10/2013 14:51:03 What Is Your Level Of Alcohol Consumption? None Information not available 06/10/2013 What Is Your Level Of Caffeine Consumption? Moderate Information not available 06/10/2013 How Much Tobacco Do You Chew? 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 03/14/2022 [email or web address] Information not available 03/14/2022 How Much Tobacco Do You Smoke? No [email or web address] Information not available 07/04/2016 Sex: Unknown Functional Status None recorded. Mental Status None recorded. Family History Relationship Description Onset Age of this Age Resolved Age Notes LastModified by Organization Details LastModified Time Father Malignant neoplastic disease [email or web address] Not available 2015 18:56:03 Medical History Condition Response Gout Y Hernia(s) Y Kidney Stones Y Arthritis/Joint Pain Y Cancer Y Hypertension/High Blood Pressure Y Past Encounters Encounter ID Performer Location Encounter Start Date Encounter Closed Date Diagnosis/Indication Diagnosis SNOMED-CT Code Diagnosis ICD10 Code [id number] [facility] [address] [place] [address] 08/29/2010 16:46:54 08/29/2010 18:36:40 [id number] MARIAMCHAZ RN [facility] [address] [place] [address] 11/29/2010 11:08:10 11/29/2010 11:40:37 [id number] EPUCHAZ RN [facility] [address] [place] [address] 12/01/2010 12:36:57 12/01/2010 13:52:17 [id number] EPUCHAZ RN [facility] [address] [place] [address] 06/01/2011 12:23:57 06/01/2011 13:47:17 [id number] EPUCHAZ RN [facility] [address] [place] [address] 05/30/2011 11:39:58 05/30/2011 12:32:22 [id number] EPUCHAZ RN [facility] [address] [place] [address] 06/04/2012 11:03:49 06/04/2012 11:38:17 [id number] EPCADY RN [facility] [address] [place] [address] 06/06/2012 11:15:17 06/06/2012 12:17:22 [id number] EPUCHAZ RN [facility] [address] [place] [address] 06/12/2013 12:17:45 06/16/2013 10:22:10 History of malignant neoplasm of prostate 324717126 Impotence of organic origin 814221646 Parkinson's disease 4904 9000 [id number] Blanemagi Louisealado EPU_MURALI RN [facility] [address] [place] [address] 08/12/2014 15:15:47 08/18/2014 20:04:57 History of malignant neoplasm of prostate 499677761 Impotence of organic origin 808637768 Parkinson's disease 4904 9000 [id number] Blanemagi Louisealado EPU_CRISTINAE RN [facility] [address] [place] [address] 09/13/2015 13:14:58 09/15/2015 10:24:59 History of malignant neoplasm of prostate 916982040 Z85.46 Impotence of organic origin 535861372 N52.8 Parkinson's disease 4904 9000 G20 Hydrocele 55903932 N43.3 [id number] Nick Krishnan MD [facility] [address] [place] [address] 06/12/2016 11:16:19 06/12/2016 19:03:00 Swelling of scrotum 776425945 N50.89 [id number] DO LULY Torres [facility] [address] [facility] [address] [place] [address] 06/20/2016 15:32:56 06/26/2016 12:08:02 Acquired hydrocele 314598443 N43.3 Left inguinal hernia 236 957158 K40.90 [id number] Deanna Rogers MD [facility] [address] [place] [address] 07/04/2016 17:11:37 07/10/2016 11:33:26 Preoperative cardiovascular examination 757594404 Z01.810 Obesity 433840371 E66.09 Parkinson's disease 4904 9000 G20 Electrocar diogram abnormal 360051063 R94.31 [id number] DO LULY Torres RN [facility] [address] [place] [address] 07/17/2016 16:54:28 07/17/2016 18:10:33 Hydrocele of testis 19842116 N43.3 Left inguinal hernia 236 266358 K40.90 [id number] DO LULY Torres RN [facility] [address] [place] [address] 07/28/2016 10:54:53 07/28/2016 15:50:15 Unilateral repair of indirect inguinal hernia 71370562 Z98.890 Left inguinal hernia 236 818907 K40.90 [id number] DO LULY Torres [facility] [address] [place] [address],[address] [place] [address] 08/01/2016 13:16:35 08/01/2016 18:28:20 Left inguinal hernia 457344832 K40.90 [id number] MD FAISAL Brice_[facility] [address] [place] [address] 08/30/2016 17:02:23 09/04/2016 17:47:14 Preoperative cardiovascular examination 486259407 Z01.810 Electrocar diogram abnormal 250144392 R94.31 Obesity 659279912 E66.09 Parkinson's disease 4904 9000 G20 [id number] DO LULY Torres RN [address] [place] [address] 09/04/2016 10:16:10 09/04/2016 14:46:34 History of malignant neoplasm of prostate 661583322 Z85.46 Hydrocele 18188827 N43.3 Left inguinal hernia 236 216186 K40.90 [id number] MD FAISAL Brice_[facility] [address] [place] [address] 02/27/2017 12:37:46 02/28/2017 11:39:39 Obesity 699805560 E66.09 Parkinson's disease 4904 9000 G20 Hypertensive disorder 38 267806 I10 Hyperlipidemia 91506548 E78.2 Hyperglycemia 31047645 R 73.09 Aortic theodora t dilatation 155008256 I77.956 [id number] DO LULY Torres RN [facility] [address] [place] [address],[address] [place] [address] 09/10/2017 13:12:12 09/12/2017 12:32:58 History of malignant neoplasm of prostate 321016965 Z85.46 Secondary erectile dysfunction 102509981 N52.37 [id number] DO LULY Torres RN [facility] [address] [place] [address],[address] [place] [address] 09/16/2018 11:15:39 09/17/2018 15:17:48 History of malignant neoplasm of prostate 574691324 Z85.46 Prostate s pecific antigen above reference range 668150599 R97.20 Bladder mu scle dysfunction - overactive 647533843 N32.81 [id number] Vasu Pruitt DO EPU_MURALI W[facility] [address] [place] [address] 03/14/2019 12:48:03 03/16/2019 16:12:22 Primary malignant neoplasm of prostate 05829037 C61 [id number] DO LULY Torres RN [facility] [address] [place] [address] 04/09/2019 13:12:25 04/10/2019 11:16:48 Primary malignant neoplasm of prostate 58951375 C61 [id number] MD RICHARD Brice [facility] [address] [place] [address] 08/05/2019 11:18:01 08/08/2019 11:22:05 Hyperlipidemia 98539583 E78.2 Obesity 693791204 E66.09 Parkinson's disease 4904 9000 G20 Hypertensive disorder 38 638035 I10 Aortic theodora t dilatation 092352372 I77.810 Edema of l ower extremity 297199694 R60.0 Obstructiv e sleep apnea syndrome 57014273 G47.33 Electrocar diogram abnormal 082098669 R94.31 Angina pectoris 42563466 0 I20.8 Carotid bruit 923169611 R09.89 [id number] MD FAISAL Brice_[facility] [address] [facility] [place] [address] 09/05/2019 11:44:58 09/09/2019 15:49:17 Hyperlipidemia 32445630 E78.2 Hypertensive disorder 38 079215 I10 Aortic theodora t dilatation 402340482 I77.810 Carotid bruit 120552355 R09.89 Parkinson's disease 4904 9000 G20 Obesity 213246754 E66.09 Left ventr icular hypertrophy 29992851 I51.7 Electrocar diogram abnormal 511199038 R94.31 [id number] MD RICHARD Brice [facility] [place] [address] [place] [address] 10/03/2019 12:16:16 10/06/2019 12:06:53 Hypertensive disorder 97021108 I10 Hyperlipidemia 35966724 E78.2 Left ventr icular hypertrophy 65599227 I51.7 Aortic theodora t dilatation 859093206 I77.810 Electrocar diogram abnormal 795198916 R94.31 Obesity 219860974 E66.09 Parkinson's disease 4904 9000 G20 Abdominal aortic aneurysm 612822781 I71.4 [id number] DO LULY Torres [facility] [address] [facility] [place] [address] 10/13/2019 16:24:52 10/13/2019 17:32:21 Primary malignant neoplasm of prostate 62797201 C61 Prostate c ancer metastatic to bone 058787816 C79.51 Prostate s pecific antigen above reference range 020750882 R97.20 Altered ur inary bladder function 808083657 N32.81 Screening for osteoporosis 295511968 Z13.088 [id number] DO LULY Torres [facility] [address] [place] [address],[address] [place] [address] 10/20/2019 11:23:25 10/21/2019 11:15:27 Primary malignant neoplasm of prostate 09012891 C61 [id number] MD RICHARD Brice [facility] [place] [address] [place] [address] 03/11/2020 13:06:23 03/12/2020 20:16:34 Abdominal aortic aneurysm 263916683 I71.4 Hypertensive disorder 38 500579 I10 Hyperlipidemia 74197927 E78.2 Left ventr icular hypertrophy 92650818 I51.7 Aortic theodora t dilatation 173749000 I77.810 Obesity 182103022 E66.09 Electrocar diogram abnormal 018263752 R94.31 Parkinson's disease 4904 9000 G20 [id number] MD MARIAM Sarmiento_MURALI RN [facility] [address] [place] [address] 03/31/2020 13:11:36 04/02/2020 10:45:49 Primary malignant neoplasm of prostate 95363165 C61 Incomplete emptying of urinary bladder 789128442 R39.14 Parkinson's disease 4904 9000 G20 [id number] MD RICHARD Brice [facility] [place] [address] [facility] [place] [address] 04/06/2020 12:25:22 04/07/2020 23:43:18 Abdominal aortic aneurysm 142299555 I71.4 Hypertensive disorder 38 042747 I10 Hyperlipidemia 32223831 E78.2 Left ventr icular hypertrophy 49267858 I51.7 Aortic theodora t dilatation 721735741 I77.810 Obesity 230225219 E66.09 Parkinson's disease 4904 9000 G20 [id number] MD FAISAL Brice_JOYCE TORRE [facility] [place] [address] [facility] [place] [address] 05/04/2020 11:48:02 05/04/2020 21:50:16 Abdominal aortic aneurysm 976185490 I71.4 Hypertensive disorder 38 760489 I10 Hyperlipidemia 18903149 E78.2 Left ventr icular hypertrophy 74698412 I51.7 Aortic theodora t dilatation 017611976 I77.810 Obesity 665656400 E66.09 Parkinson's disease 4904 9000 G20 Hyperglycemia 86314960 R 73.09 Vitamin D deficiency 347 49585 E55.9 Vitamin B1 2 deficiency (non anemic) 31462580 E53.8 [id number] MD RICHARD Brice [facility] [place] [address] [facility] [address] 05/11/2020 12:30:03 05/12/2020 22:56:47 Hypertensive disorder 44834595 I10 Abdominal aortic aneurysm 212849353 I71.4 Hyperlipidemia 52038097 E78.2 Left ventr icular hypertrophy 59706642 I51.7 Aortic theodora t dilatation 723980770 I77.810 Obesity 914073749 E66.09 Parkinson's disease 4904 9000 G20 [id number] MD FAISAL Brice_JOY[facility] T[facility] [address] [address] 06/11/2020 12:01:55 06/13/2020 19:01:11 Hypertensive disorder 67006457 I10 Hyperlipidemia 16496415 E78.2 Abdominal aortic aneurysm 945148551 I71.4 Left ventr icular hypertrophy 31660310 I51.7 Aortic theodora t dilatation 788820626 I77.810 Obesity 989417792 E66.09 Parkinson's disease 4904 9000 G20 [id number] MD FAISAL Brice_[facility] [address] [address] 09/06/2020 17:20:50 09/08/2020 07:30:41 Hypertensive disorder 40266668 I10 Hyperlipidemia 66802810 E78.2 Abdominal aortic aneurysm 757149095 I71.4 Left ventr icular hypertrophy 26872124 I51.7 Aortic theodora t dilatation 014572826 I77.810 Obesity 806303362 E66.09 Parkinson's disease 4904 9000 G20 Hyperglycemia 85128281 R 73.09 Vitamin D deficiency 347 97207 E55.9 Vitamin B1 2 deficiency (non anemic) 19284678 E53.8 Benign pro static hyperplasia 666752665 N40.0 [id number] MD RICHARD Brice [facility] [address] [address] 10/04/2020 16:26:14 10/05/2020 15:27:48 Hypertensive disorder 35344018 I10 Abdominal aortic aneurysm 830688466 I71.4 Hyperlipidemia 48579095 E78.2 Left ventr icular hypertrophy 11384740 I51.7 Aortic theodora t dilatation 348471920 I77.810 Parkinson's disease 4904 9000 G20 Obesity 727706235 E66.09 Metastatic malignant neoplasm 058184318 C79.9 [id number] MD FAISAL Brice_JOYCE T[facility] [address] [place] [address] 04/07/2021 11:04:30 04/13/2021 12:20:39 Hypertensive disorder 91331803 I10 Hyperlipidemia 91803411 E78.2 Abdominal aortic aneurysm 960201511 I71.4 Left ventr icular hypertrophy 14869706 I51.7 Aortic theodora t dilatation 345326646 I77.810 Metastatic malignant neoplasm 678945169 C79.9 Parkinson's disease 4904 9000 G20 Obesity 422310266 E66.09 [id number] Aashish Blackmon MD [facility] [address] [facility] [place] [address] 09/29/2021 15:43:33 10/07/2021 18:48:09 Postoperative visit 259937231 Z09 Removal of fide 73863 001 Z48.02 Screening colonoscopy 44 2257347 Z12.11 Open wound of anterior abdominal wall 100252241 S31.109A Low blood pressure 89202 003 I95.9 [id number] Aashish Blackmon MD [facility] [address] [facility] [place] [address] 01/03/2022 12:24:32 01/05/2022 11:15:36 Colorectal cancer screening not done 4832270669 100 Z53.9 [id number] MD RICHARD Brice [facility] [address] [place] [address] 03/09/2022 16:15:56 03/19/2022 22:18:36 Metastatic malignant neoplasm 370086303 C79.9 Parkinson's disease 4904 9000 G20 Hypertensive disorder 38 562351 I10 Hyperlipidemia 02233759 E78.2 Abdominal aortic aneurysm 420733787 I71.4 Left ventr icular hypertrophy 07727317 I51.7 Aortic theodora t dilatation 866034301 I77.810 Obesity 397397222 E66.09 Vitamin D deficiency 347 03461 E55.9 Vitamin B1 2 deficiency (non anemic) 23661201 E53.8 Fatigue 81418128 R53.83 Hyperglycemia 17128565 R 73.09 Obstructiv e sleep apnea syndrome 22819287 G47.33 Overweight 323567551 E66 .3 Atrial fibrillation 4943 6004 I48.0 [id number] MD FAISAL Brice_JOYCE TORRE [facility] [place] [address] [place] [address] 03/14/2022 11:08:01 03/26/2022 11:20:43 Obesity 985254745 E66.3 Pre-surger y evaluation 933062998 Z01.818 Hypertensive disorder 38 430341 I10 Hyperlipidemia 18808612 E78.2 Paroxysmal atrial fibrillation 643401079 I48.0 Abdominal aortic aneurysm 682304494 I71.4 Left ventr icular hypertrophy 22945636 I51.7 Aortic theodora t dilatation 158471187 I77.810 Obstructiv e sleep apnea syndrome 33281987 G47.33 [id number] MD FAISAL Brice_JOYCE TORRE [facility] [place] [address] [place] [address] 04/11/2022 16:48:31 04/17/2022 14:09:08 Paroxysmal atrial fibrillation 202017710 I48.0 Hypertensive disorder 38 156766 I10 Hyperlipidemia 18957693 E78.2 Abdominal aortic aneurysm 371658373 I71.4 Left ventr icular hypertrophy 30940635 I51.7 Aortic theodora t dilatation 423486810 I77.810 Obstructiv e sleep apnea syndrome 99305944 G47.33 Obesity 814218150 E66.3 Vitamin D deficiency 347 66940 E55.9 Iron defic iency anemia 81095047 D50.9 Pre-surger y evaluation 191646406 Z01.821 [id number] Aashish Blackmon MD [facility] [address] [place] [address] 09/04/2022 16:57:10 09/07/2022 13:19:04 Colorectal cancer screening not done 5016915258 100 Z53.9 Health Concerns Section Related Observation LastModified by Organization Detai ls LastModified Time None Recorded Concern Status LastModified by Organization Details LastModified Time None Recorded Advance Directives Directive None Recorded Payers Encounter Date Sequence Insurance Name Policy Number Policy Mtz Covered Member ID Mtz Member ID Guarantor Name 01/03/2022 1 MEDICARE BNM: [employer] Gordon L Zellmer [id number] Gordon L Zellmer 01/03/2022 2 [employer] [place] Gordon L Zellmer [id number] Gordon L Zellmer 03/09/2022 1 MEDICARE B-NM: [employer] Gordon L Zellmer [id number] Gordon L Zellmer 03/09/2022 2 [employer] [place] Gordon L Zellmer [id number] Gordon L Zellmer 03/14/2022 1 MEDICARE B-NM: [employer] Gordon L Zellmer [id number] Gordon L Zellmer 03/14/2022 2 [employer] [place] Gordon L Zellmer [id number] Gordon L Zellmer 04/11/2022 1 MEDICARE B-NM: [employer] Gordon L Zellmer [id number] Gordon L Zellmer 04/11/2022 2 [employer] [place] Gordon L Zellmer [id number] Gordon L Zellmer 09/04/2022 1 MEDICARE BNM: [employer] Gordon L Zellmer [id number] 2 Gordon L Zellmer 09/04/2022 2 [employer] [place] Gordon L Zellmer [id number] Gordon L Zellmer Notes Date Note Type Note Provider Name and Address Organization Details Recorded Time 2 text/html Gordon Hunter is well known to me. As detailed in my previous notes, he has recently undergone extensive surgery. He presents today to discuss colorectal cancer screening. Patient's last colonoscopy was reportedly 10 years ago. Today, he reports feeling overall much better. All of his wounds have healed. He denies any GI symptoms of concern. Specifically, he denies any change in bowel habits, thinning of stools, hematochezia, melena, abdominal pain, or difficulties with food tolerance. He expresses that he is not interested in pursuing a colonoscopy, and would like to try Cologuard testing instead. Aashish Blackmon MD [address], [place], [address], [facility] 01/04/2022 21:49:13 2 text/html HyperlipidemiaReported bypatient.Duration:chronic Compliance:compliant Complications:no coronary artery disease; no peripheral artery disease; no cardiovascular disease Risk Factors:hypertension;obesit yHypertensionReported bypatient.Associated Symptoms:no shortness of breath; no fatigue; no palpitations; no decline in exercise capacity; no snoring; no headache; no chest pain; no epistaxis; no edema; no flushingObesityReported bypatient.Associated Symptoms:chronic illness Co-morbidities:overweight/o bese;hypertension Lifestyle changes:not losing weight;not exercising more Physical Activity:no exercise Gordon is a 72 y/o male presenting today for follow up and cardiac clearance for surgery. Due to his heart still in A Fib, Gordon is not cleared for surgery. During the visit, the patient denies any dizziness or lightheadedness. Deanna Rogers MD [address], [place], [address], [facility] 03/19/2022 15:29:00 2 text/html HyperlipidemiaReported bypatient.Duration:chronic Compliance:compliant Complications:no coronary artery disease; no peripheral artery disease; no cardiovascular disease Risk Factors:hypertension;obesit yHypertensionReported bypatient.Associated Symptoms:no shortness of breath; no fatigue; no palpitations; no decline in exercise capacity; no snoring; no headache; no chest pain; no epistaxis; no edema; no flushingObesityReported bypatient.Associated Symptoms:chronic illness Co-morbidities:overweight/o bese;hypertension Lifestyle changes:not losing weight;not exercising more Physical Activity:no exercise Gordon is a 72 y/o male who is presenting today with a request for cardiac clearance for IPG battery change. Patient requires management of known problems of HTN, HLD, AAA, LVH, aortic root dilatation, and known parkinsons's disease for which the IPG battery is for. Deanna Rogers MD [address], [place], [address], [facility] 03/25/2022 13:54:39 2 text/html HyperlipidemiaReported bypatient.Duration:chronic Compliance:compliant Complications:no coronary artery disease; no peripheral artery disease; no cardiovascular disease Risk Factors:hypertension;obesit yHypertensionReported bypatient.Associated Symptoms:no shortness of breath; no fatigue; no palpitations; no decline in exercise capacity; no snoring; no headache; no chest pain; no epistaxis; no edema; no flushingObesityReported bypatient.Associated Symptoms:chronic illness Co-morbidities:overweight/o bese;hypertension Lifestyle changes:not losing weight;not exercising more Physical Activity:no exercise Gordon is a 72 y/o male who is presenting today for a follow up and for management of hypertension, hyperlipidemia, left ventricular hypertrophy, aortic root dilatation, and parkinson disease. Patient is following up with recent test results to gain cardiac clearance for IPG battery replacement for parkinsons/tremors. Deanna Rogers MD [address], [place], [address], [facility] 04/16/2022 17:02:06 3 text/html Gordon Coleman returns to my clinic today for a follow up visit. As detailed in my previous notes, he has undergone extensive surgery. He presents today once more to discuss colorectal cancer screening.Patient's last colonoscopy was reportedly about 10-11 years ago. He continues to follow-up at [facility] for treatment of his prostate cancer. He is doing overall well. He denies any nausea, emesis, food intolerance, hematochezia, melena, change in bowel habits, diarrhea, constipation, abdominal pain, anorectal pain, or other symptoms of concern. He has still not undergone Cologuard testing. He reports that he received the kit, but never performed the test. He is unsure where the kit is at this time. Aashish Blackmon MD [address], [place], [address], [facility] 09/07/2022 01:08:41
== END 2024-06-01 23:31 | disposition home or self-care (01) ==
LOC: AMB 06-21 06:21
PROVIDERS: Visit Provider Family Medicine
DX: R53.1 Weakness (principal)
CPT/HCPCS: A0998